=== PATIENT | female | born 1980 | race Caucasian/White ===

== ENCOUNTER 2018-01-28 13:29 | Emergency (ER) | payer MEDICAID ==
[2018-01-28 13:36] VITALS: BP 120/77
--- NOTE | 2018-01-28 14:22 | ED Physician Documentation ---
PD HPI URI - Stated complaint Stated Complaint: SOA/COUGH - Chief complaint Chief Complaint: Resp - History obtained from History obtained from: Patient - History of Present Illness Timing - onset: How many months ago (3) Timing details: Waxing and waning Associated symptoms: Dry cough Similar symptoms before: Has not had sx before - Additional information Additional information: The patient is a 37-year-old smoker who presents with cough of 3 months duration. It has been getting worse over the past week. Her cough is nonproductive. She denies fever, dyspnea, but does report slight discomfort in the right chest with coughing. She is vacationing here from [place], having arrived 2 months ago. Her cough started prior to leaving home. Further review of systems is otherwise negative. She denies history of similar symptoms in the past. Review of Systems Constitutional: denies: Fever Nose: denies: Congestion Throat: denies: Sore throat Cardiac: denies: Chest pain / pressure Respiratory: reports: Cough. 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 - Present Medications Home Medications: Ambulatory Orders Medication Instructions Recorded Confirmed Albuterol Sulfate [Proventil Hfa 1 - 2 puffs INH Q4H PRN #1 inhaler 01/28/18 Inhaler] Benzonatate [Tessalon] 100 mg PO TID PRN #12 capsule 01/28/18 Inhaler, Assist Devices 1 each MC PRN PRN #1 spacer 01/28/18 [Aerochamber Z-Stat Plus] Oxcarbazepine [Trileptal] 300 mg PO DAILY 01/28/18 01/28/18 Paliperidone Palmitate [Invega 39 mg IM ONCE 01/28/18 01/28/18 Sustenna] Sertraline [Zoloft] 25 mg PO DAILY 01/28/18 01/28/18 traZODone [Desyrel] 50 mg PO HS 01/28/18 01/28/18 - Allergies Allergies/Adverse Reactions: Allergies Allergy/AdvReac Type Severity Reaction Status Date / Time No Known Drug Allergies Allergy Verified 01/28/18 13:35 - Social History Does the pt smoke?: Yes Smoking Status: Current every day smoker Does the pt have substance abuse?: Yes Substance Use and Type: Marijuana PD ED PE NORMAL - Vitals Vital signs reviewed: Yes (normal) - General General: Alert and oriented X 3, Well developed/nourished - HEENT HEENT: Atraumatic, Ears normal, Pharynx benign - Neck Neck: No adenopathy, No JVD - Cardiac Cardiac: RRR, No murmur - Respiratory Respiratory: Clear bilaterally - Abdomen Abdomen: Soft, Non tender - Back Back: No CVA TTP - Derm Derm: No rash - Extremities Extremities: No edema, No calf tenderness / cord - Neuro Neuro: Alert and oriented X 3, No motor deficit, Normal speech Results - Vitals Vitals: Vital Signs - 24 hr 01/28/18 13:34 Temperature 36.5 C Heart Rate 76 Respiratory 18 Rate Blood Pressure 120/77 O2 Saturation 100 Oxygen O2 Source Room air - Rads (name of study) CXR Radiology: Prelim report reviewed, EMP read contemporaneously, See rad report (Normal 2 view chest x-ray.) PD MEDICAL DECISION MAKING - ED course Complexity details: reviewed results, re-evaluated patient, considered differential, d/w patient, d/w family ED course: The patient's presentation is most consistent with bronchitis. Her chest x-ray reveals no evidence of pneumonia. Her presentation does not suggest cardiac etiology or pulmonary embolus. Treatment in the emergency department included administration of dexamethasone 10 mg orally. She is being discharged with prescription for albuterol inhaler and Tessalon. I discussed with her the next impacted course of illness, symptomatic treatment and outpatient follow-up, as well as potentially worrisome signs or symptoms that should prompt reevaluation in the emergency department. I also strongly encouraged her to discontinue cigarette smoking. - Sepsis Event Vital Signs: Vital Signs - 24 hr 01/28/18 13:34 Temperature 36.5 C Heart Rate 76 Respiratory 18 Rate Blood Pressure 120/77 O2 Saturation 100 Oxygen O2 Source Room air Departure - Departure Disposition: 01 Home, Self Care Clinical Impression: Bronchitis Condition: Stable Instructions: ED Bronchitis Asthmatic Follow-Up: [facility] [Provider Group] Prescriptions: Albuterol Sulfate [Proventil Hfa Inhaler] 1 - 2 puffs INH Q4H PRN #1 inhaler PRN Reason: Shortness Of Air/Wheezing Benzonatate [Tessalon] 100 mg PO TID PRN #12 capsule PRN Reason: Cough Inhaler, Assist Devices [Aerochamber Z-Stat Plus] 1 each MC PRN PRN #1 spacer PRN Reason: Wheezing Comments: Try to stop smoking cigarettes. You can use albuterol inhaler as prescribed if needed for cough or shortness of breath. You can use Tessalon as prescribed as needed for cough. Follow-up with primary physician within 2 weeks. Call to schedule an appointment. Return to the emergency department if you develop increasing difficulty breathing, or otherwise worsening symptoms. Discharge Date/Time: 01/28/18 15:23
--- NOTE | 2018-01-28 14:50 | XRAY Report ---
Reason: Cough for three months, getting worse. Procedure Date: 01/28/2018 Accession Number: [id number] / [id number] Procedure: XR - Chest 2 View X-Ray CPT Code: 26610 FULL RESULT: EXAM: CHEST RADIOGRAPHY EXAM DATE: 01/28/2018 02:43 PM. CLINICAL HISTORY: Cough. COMPARISON: None. TECHNIQUE: 2 views. FINDINGS: Lungs/Pleura: No focal opacities evident. No pleural effusion. No pneumothorax. Normal volumes. Mediastinum: Heart and mediastinal contours are unremarkable. Other: None. IMPRESSION: Normal 2-view chest radiography. [facility]
[2018-01-28] MEDS ORDERED: DEXAMETHASONE 10 MG/ML VIAL PO STA (15:13)
[2018-01-28] MEDS ORDERED: CHERRY SYRUP 10 ML UDC PO ONE (15:18)
== END 2018-01-28 15:23 | disposition home or self-care (01) ==
LOC: ED 13:29
DX: J40 Bronchitis, not specified as acute or chronic (principal); F17.200 Nicotine dependence, unspecified, uncomplicated
CPT/HCPCS: 71046; 99283; A9270

== ENCOUNTER 2018-02-23 11:03 | Emergency (ER) | payer MEDICAID ==
[2018-02-23 11:27] VITALS: BP 126/79
--- NOTE | 2018-02-23 13:44 | ED Physician Documentation ---
History of Present Illness - Stated complaint Stated Complaint: MED REFILL - Chief complaint Chief Complaint: General - History obtained from History obtained from: Patient, Family - History of Present Illness Timing: Other (37-year-old woman visiting [place], she is here for a couple of months visiting her mom and needs refills of her medications. 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 - Present Medications Home Medications: Ambulatory Orders Medication Instructions Recorded Confirmed Albuterol Sulfate [Proventil Hfa 1 - 2 puffs INH Q4H PRN #1 inhaler 01/28/18 Inhaler] Benzonatate [Tessalon] 100 mg PO TID PRN #12 capsule 01/28/18 Inhaler, Assist Devices 1 each MC PRN PRN #1 spacer 01/28/18 [Aerochamber Z-Stat Plus] Oxcarbazepine [Trileptal] 300 mg PO DAILY 01/28/18 01/28/18 Paliperidone Palmitate [Invega 39 mg IM ONCE 01/28/18 01/28/18 Sustenna] Sertraline [Zoloft] 25 mg PO DAILY 01/28/18 01/28/18 traZODone [Desyrel] 50 mg PO HS 01/28/18 01/28/18 Oxcarbazepine [Trileptal] 300 mg PO BID #120 tablet 02/23/18 Paliperidone Palmitate [Invega 234 mg IM ONCE #2 syringe 02/23/18 Sustenna] Sertraline [Zoloft] 25 mg PO DAILY #60 tablet 02/23/18 Trazodone HCl 100 mg PO QPM #60 tablet 02/23/18 - Allergies Allergies/Adverse Reactions: Allergies Allergy/AdvReac Type Severity Reaction Status Date / Time No Known Drug Allergies Allergy Verified 02/23/18 11:27 - Social History Does the pt smoke?: Yes Smoking Status: Current every day smoker Does the pt have substance abuse?: Yes PD ED PE NORMAL - Vitals Vital signs reviewed: Yes - General General: Alert and oriented X 3, No acute distress - Neuro Neuro: Alert and oriented X 3, Normal speech - Psych Psych: Normal mood, Normal affect Results - Vitals Vitals: Vital Signs - 24 hr 02/23/18 11:24 Temperature 36.4 C L Heart Rate 77 Respiratory 16 Rate Blood Pressure 126/79 O2 Saturation 99 Oxygen O2 Source Room air Departure - Departure Disposition: Home, Self Care Clinical Impression: Schizo affective schizophrenia Condition: Good Record reviewed to determine appropriate education?: Yes Instructions: ED Schizo Affective Disorder Prescriptions: Oxcarbazepine [Trileptal] 300 mg PO BID #120 tablet Paliperidone Palmitate [Invega Sustenna] 234 mg IM ONCE #2 syringe Sertraline [Zoloft] 25 mg PO DAILY #60 tablet Trazodone HCl 100 mg PO QPM #60 tablet Comments: Call your doctor to arrange a follow-up appointment, make the next available appointment. In the interim, return anytime if worse or if new symptoms develop.
== END 2018-02-23 13:55 | disposition home or self-care (01) ==
LOC: ED 11:03
DX: F25.9 Schizoaffective disorder, unspecified (principal); Z76.0 Encounter for issue of repeat prescription; F17.200 Nicotine dependence, unspecified, uncomplicated
CPT/HCPCS: 99283

== ENCOUNTER 2018-05-02 05:53 | Emergency (ER) | payer MEDICAID ==
[2018-05-02 06:02] VITALS: BP 134/97
--- NOTE | 2018-05-02 06:12 | ED Physician Documentation ---
History of Present Illness - Stated complaint Stated Complaint: MEDICATION REFILL - Chief complaint Chief Complaint: General - History obtained from History obtained from: Patient - History of Present Illness Timing: Today - Additonal information Additional information: Patient is a 37-year-old female who is visiting here from [place]. She has a history of schizoaffective disorder and borderline diabetes and she is on a number of medications. She has stayed longer than she expected and she came into the emergency department at the end of January and was prescribed a month's supply of medication by Dr. Hernandez. She is expecting to stay another 6 weeks at least and could stay longer. She is asking for refills of her medications. She indicates that she has not been able to get into see a clinic. Review of Systems Constitutional: denies: Fever, Myalgias Eyes: denies: Decreased vision Ears: denies: Ear pain Nose: denies: Congestion Throat: denies: Sore throat Cardiac: denies: Chest pain / pressure, Palpitations Respiratory: reports: Cough. 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 - Present Medications Home Medications: Ambulatory Orders Medication Instructions Recorded Confirmed Albuterol Sulfate [Proventil Hfa 1 - 2 puffs INH Q4H PRN #1 inhaler 01/28/18 Inhaler] Benzonatate [Tessalon] 100 mg PO TID PRN #12 capsule 01/28/18 Inhaler, Assist Devices 1 each MC PRN PRN #1 spacer 01/28/18 [Aerochamber Z-Stat Plus] Oxcarbazepine [Trileptal] 300 mg PO DAILY 01/28/18 01/28/18 Paliperidone Palmitate [Invega 39 mg IM ONCE 01/28/18 01/28/18 Sustenna] Sertraline [Zoloft] 25 mg PO DAILY 01/28/18 01/28/18 traZODone [Desyrel] 50 mg PO HS 01/28/18 01/28/18 Oxcarbazepine [Trileptal] 300 mg PO BID #120 tablet 02/23/18 Paliperidone Palmitate [Invega 234 mg IM ONCE #2 syringe 02/23/18 Sustenna] Sertraline [Zoloft] 25 mg PO DAILY #60 tablet 02/23/18 Trazodone HCl 100 mg PO QPM #60 tablet 02/23/18 OXcarbazepine [Oxcarbazepine] 300 mg PO BID #60 tablet 05/02/18 Paliperidone Palmitate [Invega 234 mg IM ONCE #1.5 ml 05/02/18 Sustenna] Sertraline [Zoloft] 25 mg PO DAILY #30 tablet 05/02/18 traZODone [Desyrel] 100 mg PO HS #30 tablet 05/02/18 - Allergies Allergies/Adverse Reactions: Allergies Allergy/AdvReac Type Severity Reaction Status Date / Time No Known Drug Allergies Allergy Verified 02/23/18 11:27 - Social History Does the pt smoke?: Yes Smoking Status: Current every day smoker Does the pt drink ETOH?: Yes Does the pt have substance abuse?: No - Immunizations Immunizations are current?: No Immunizations: TDAP >10years/unknown - POLST Patient has POLST: No PD ED PE NORMAL - Vitals Vital signs reviewed: Yes (tachy and hypertensive ) - General General: Alert and oriented X 3, No acute distress, Well developed/nourished - HEENT HEENT: Atraumatic, PERRL, EOMI - Respiratory Respiratory: No respiratory distress - Derm Derm: Normal color, Warm and dry, No rash - Extremities Extremities: No deformity, No edema - Neuro Neuro: Alert and oriented X 3, tactical/mobile watch officer 2-12 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, No motor deficit, No sensory deficit, Normal speech Eye Opening: Spontaneous Motor: Obeys Commands Verbal: Oriented GCS Score: 15 - Psych Psych: Normal affect, Other (mood is anxious) Results - Vitals Vitals: Vital Signs - 24 hr 05/02/18 05:59 Temperature 36.4 C L Heart Rate 114 H Respiratory 18 Rate Blood Pressure 134/97 H O2 Saturation 96 Oxygen O2 Source Room air PD MEDICAL DECISION MAKING - ED course Complexity details: considered differential, d/w patient ED course: 37-year-old female who needs medication refills needs a referral to the clinic as well as she may be staying for an extended period of time. I have agreed to refill her medications as requested. I have indicated to her that we will not be able to fill more than 1 month of medications today. Departure - Departure Disposition: 01 Home, Self Care Clinical Impression: Schizo affective schizophrenia Instructions: ED Schizo Affective Disorder Follow-Up: [facility] [Provider Group] Prescriptions: OXcarbazepine [Oxcarbazepine] 300 mg PO BID #60 tablet Paliperidone Palmitate [Invega Sustenna] 234 mg IM ONCE #1.5 ml Sertraline [Zoloft] 25 mg PO DAILY #30 tablet traZODone [Desyrel] 100 mg PO HS #30 tablet
== END 2018-05-02 06:21 | disposition home or self-care (01) ==
LOC: ED 05:53
DX: F25.9 Schizoaffective disorder, unspecified (principal); Z76.0 Encounter for issue of repeat prescription; R73.03 Prediabetes; F17.200 Nicotine dependence, unspecified, uncomplicated
CPT/HCPCS: 99283